=== PATIENT | male | born 1985 | race Caucasian/White ===

== ENCOUNTER 2018-05-11 19:09 | Emergency (ER) | payer BC ==
[2018-05-11 20:20] LABS: #Basophils 0.1 thou/uL (0.0-0.2); #Eosinphils 0.1 thou/uL (0.0-0.7); #Lymphocytes 2.8 thou/uL (1.20-3.40); #Monocytes 0.7 thou/uL (0.11-0.59); #Neutrophils 4.9 thou/uL (1.40-6.50); %Basophils 1.1 % (0.0-1.0); %Eosinophils 1.7 % (0.0-10.0); %Lymphocytes 32.3 % (21.0-51.0); %Monocytes 7.8 % (0.0-10.0); %Neutrophils 57.2 % (42.0-75.0); Hemoglobin 16.6 g/dL (14.0-18.0); Mean Corpuscular HGB CONC 33.9 g/dL (32.0-36.0); Mean Corpuscular Hemoglobin 32.8 pg (27.0-31.0); Mean Corpuscular Volume 96.7 fL (78.0-98.0); Mean Platelet Volume 6.5 fL (7.4-10.4); Platelet Count 318 thou/uL (130-400); RBC Distribution Width 11.5 % (11.5-14.5); Red Blood Cell (RBC) Count 5.07 mill/uL (4.70-6.10); White Blood Cell (WBC) Count 8.5 thou/uL (4.8-10.8)
[2018-05-11 20:27] LABS: Bilirubin Negative (Negative); Blood, Urine Negative (Negative); Clarity CLEAR (Clear); Glucose, Urine (Dipstick) >=1000 mg/dL (Negative); Leukocyte Negative (Negative); Nitrite Negative (Negative); Protein, Urine (Dipstick) Negative (Neg-Trace); Specific Gravity, Urine 1.021 (1.002-1.036)
[2018-05-11 20:41] LABS: ALT (SGPT) 13 U/L (8-55); AST (SGOT) 15 U/L (5-34); Albumin 4.7 g/dL (3.5-5.0); Alkaline Phosphatase 65 U/L (40-150); Anion Gap 11 mmol/L (10-20); BUN (Urea Nitrogen) 9 mg/dL (8.9-20.6); Bilirubin, Total 0.9 mg/dL (0.2-1.2); Calc. Creatinine Clearance 0 mL/min (70-130); Calcium 9.6 mg/dL (7.8-10.44); Carbon Dioxide 27 mmol/L (22-29); Chloride 104 mmol/L (98-107); Estimated GFR-MDRD Greater than 90; Glucose 134 mg/dL (70-105); Protein, Total 7.7 g/dL (6.0-8.3); Sodium 138 mmol/L (136-145)
[2018-05-11] MEDS ORDERED: Mag-Al 1200 mg/1200 mg/30 ML UDCUP ONE (20:44)
[2018-05-11] MEDS ORDERED: Ondansetron ODT 4 MG TAB ONE (20:44)
[2018-05-11] MEDS ORDERED: Lidocaine Viscous Sol 2% 15 ml UD Cup ONE (20:44)
[2018-05-11 20:50] LABS: Alcohol Less than 10 mg/dL (Less than 10); CK (CPK) 104 U/L (30-200)
[2018-05-11 20:56] LABS: Troponin I Less than 0.010 ng/mL (< 0.028)
== END 2018-05-11 21:59 | disposition home or self-care (01) ==
LOC: ERS 19:09
DX: K29.70 Gastritis, unspecified, without bleeding (principal); F17.210 Nicotine dependence, cigarettes, uncomplicated
CPT/HCPCS: 80053; 80307; 81003; 82550; 83690; 84484; 85025; 93005; Q0162

== ENCOUNTER 2019-08-07 18:38 | Emergency (ER) | payer BC, OTHER ==
--- NOTE | 2019-08-07 19:10 | RAD ---
Exam: Chest 2 views HISTORY:Emergency exam Comparison: 10/31/2009 FINDINGS: Lungs: No masses or consolidation. Cardiac silhouette: Normal size Pulmonary vessels: Normal Pleural Spaces: Clear Pneumothorax: None Osseous abnormalities: None of acuity. IMPRESSION: No focal consolidation.
== END 2019-08-07 19:48 | disposition home or self-care (01) ==
LOC: ERS 18:38
DX: M94.0 Chondrocostal junction syndrome [Tietze] (principal); F17.210 Nicotine dependence, cigarettes, uncomplicated
CPT/HCPCS: 71046; 93005

== ENCOUNTER 2019-11-17 17:49 | Inpatient (IN) | payer OTHER, SELFPAY ==
[2019-11-17 18:32] LABS: #Basophils 0.1 thou/uL (0.0-0.2); #Eosinphils 0.1 thou/uL (0.0-0.7); #Lymphocytes 1.8 thou/uL (1.20-3.40); #Monocytes 0.6 thou/uL (0.11-0.59); %Basophils 0.7 % (0.0-1.0); %Eosinophils 0.5 % (0.0-10.0); %Lymphocytes 14.4 % (21.0-51.0); %Monocytes 4.9 % (0.0-10.0); %Neutrophils 79.6 % (42.0-75.0); Mean Corpuscular HGB CONC 33.5 g/dL (32.0-36.0); Mean Corpuscular Volume 95.5 fL (78.0-98.0); Mean Platelet Volume 6.9 fL (7.4-10.4); Platelet Count 326 thou/uL (130-400); RBC Distribution Width 11.9 % (11.5-14.5); Red Blood Cell (RBC) Count 5.01 mill/uL (4.70-6.10); White Blood Cell (WBC) Count 12.6 thou/uL (4.8-10.8)
[2019-11-17 18:38] LABS: Bilirubin Negative (Negative); Blood, Urine Negative (Negative); Clarity Clear (Clear); Glucose, Urine (Dipstick) >=1000 mg/dL (Negative); Leukocyte Negative Leu/uL (Negative); Nitrite Negative (Negative); Protein, Urine (Dipstick) Negative (Neg-Trace); Urobilinogen Normal mg/dL (Less than 2)
--- NOTE | 2019-11-17 18:44 | RAD ---
PORTABLE CHEST: History: Chest pain. FINDINGS: Heart size and mediastinum are within normal limits. Lungs are clear of infiltrates. No significant b carina findings. IMPRESSION: No active intrathoracic disease. POS: [facility]
[2019-11-17 18:58] LABS: ALT (SGPT) 12 U/L (8-55); AST (SGOT) 14 U/L (5-34); Albumin 4.2 g/dL (3.5-5.0); Alkaline Phosphatase 80 U/L (40-110); Anion Gap 13 mmol/L (10-20); BUN (Urea Nitrogen) 9 mg/dL (8.9-20.6); Bilirubin, Total 1.2 mg/dL (0.2-1.2); CK (CPK) 88 U/L (30-200); Calc. Creatinine Clearance 0 mL/min (70-130); Calcium 8.8 mg/dL (7.8-10.44); Carbon Dioxide 26 mmol/L (22-29); Chloride 103 mmol/L (98-107); Estimated GFR-MDRD Greater than 90; Globulin 2.5 g/dL (2.4-3.5); Glucose 239 mg/dL (70-105); Potassium 4.1 mmol/L (3.5-5.1); Protein, Total 6.7 g/dL (6.0-8.3); Sodium 138 mmol/L (136-145)
[2019-11-17 19:17] LABS: Amphetamine Not Detected (NotDetected); Barbiturates Screen Not Detected (NotDetected); Benzodiazepine Screen Not Detected (NotDetected); Cocaine Metabolite Screen Not Detected (NotDetected); Medtox Control Line Valid? VALID (VALID); Medtox Reader # READER 4; Methadone Not Detected (NotDetected); Methamphetamine Not Detected (NotDetected); Opiate Screen Not Detected (NotDetected); Oxycodone Screen Not Detected (NotDetected); Phencyclidine (PCP) Not Detected (NotDetected); THC/Cannabinoid Screen Detected (NotDetected); Tricyclic Screen Not Detected (NotDetected)
[2019-11-17] MEDS ORDERED: Enoxaparin Sodium 60 MG/0.6 ML SYRINGE ONE (21:42)
[2019-11-17 22:02] LABS: Troponin I 0.105 ng/mL (< 0.028)
[2019-11-18] MEDS ORDERED: Nitroglycerin 0.4 MG TAB (25 Tab Bottle) PO PRN (01:03)
[2019-11-18 01:05] LABS: Troponin I 0.107 ng/mL (< 0.028)
[2019-11-18] MEDS ORDERED: Acetaminophen 650 MG Suppository PR PRN (01:08)
[2019-11-18] MEDS ORDERED: Ondansetron PF 4 MG/2 ML Vial IVP PRN (01:08)
[2019-11-18] MEDS ORDERED: Ondansetron ODT 4 MG TAB PO PRN (01:08)
[2019-11-18] MEDS ORDERED: Acetaminophen 325 MG TAB PO PRN (01:08)
[2019-11-18] MEDS ORDERED: Dextrose 5% in Water 1,000 ML IV PRN (01:18)
[2019-11-18] MEDS ORDERED: HumaLOG 300 UNITS/3 ML VIAL SC PRN ×2 (01:18)
[2019-11-18] MEDS ORDERED: Dextrose 50% Abboject 50 ML SYRINGE SLOW IVP PRN (01:18)
[2019-11-18] MEDS: Sodium Chloride 0.9% 1,000 ML IV SCH ×2 (01:37→18:01)
--- NOTE | 2019-11-18 02:17 | HP ---
CHIEF COMPLAINT: Persistent and increasing chest pain. HISTORY OF PRESENT ILLNESS: Mr. Ding is a 34-year-old gentleman with a known history of diabetes mellitus, controlled with diet, who presents with ongoing chest pain for the last month. The patient states the pain occurs almost daily, initially lasting a couple of minutes and brought on when he exerted himself and relieved with rest. The pain has been progressively worse in severity and lasting a few minutes longer than usual over the last week. The patient states the pain is in the center of his chest radiating up into his neck to his jaw and reports pain in the bilateral forearms. He states the pain in his forearm comes on at the same time as the chest pain and just like the chest pain, it resolves once he is resting. He does not know if he was taking any medications for this at home. Denies any associated shortness of breath, cough, or hemoptysis. No diaphoresis. No nausea or vomiting. No abdominal pain. The patient concerned due to a strong family history of coronary artery disease and diabetes mellitus in both parents as well as in maternal uncles. In the emergency department, the patient underwent laboratory studies notable for a white count of 12.6, hemoglobin 16, platelets 326, neutrophils 79.6. Sodium is , potassium 4.1, BUN 9, creatinine 0.81, GFR 90, glucose 239, calcium 8.8. LFTs unremarkable. Initial troponin was 0.092 and second troponin 0.105. Urinalysis notable for greater than 1000 glucose, 740 ketones. Urine drug screen has come back positive for cannabinoids. He has had a chest x-ray done showing no acute intrathoracic disease. In the ED, he has been treated with 324 mg of aspirin and given 1 L of normal saline. He was also started on Lovenox 1 mg/kg. An EKG done in the ER showed normal sinus rhythm with a heart rate of 62. He did have some changes concerning for LVH. PAST MEDICAL HISTORY: 1. Diabetes, diet controlled. 2. Heavy smoker. PAST SURGICAL HISTORY: None. SOCIAL HISTORY: The patient reports smoking marijuana occasionally. Denies any heavy alcohol consumption. Reports smoking 1-1/2 to 2-1/2 packs of cigarettes per day for the last 20 years. ALLERGIES: NO KNOWN DRUG ALLERGIES. CURRENT MEDICATIONS: None. PHYSICAL EXAMINATION: GENERAL: The patient appears thin, well developed, and in no acute distress. VITAL SIGNS: Temperature 98, pulse 68, blood pressure 154/82, respirations 18, and O2 saturation 99% on room air. HEENT: Normocephalic and atraumatic. Pupils are equal, round, and reactive to light. Sclerae without icterus. Oropharynx is clear. NECK: Supple. LUNGS: Clear to auscultation bilaterally without wheezes, rales, or rhonchi. CARDIAC: Regular rate and rhythm. No chest wall tenderness. NEUROLOGIC: Alert and oriented x3. SKIN: Warm and dry. EXTREMITIES: No lower leg swelling or edema. NEUROLOGIC: Alert and oriented x3. No neuro deficits on exam. INVESTIGATIONS: As mentioned above in HPI. IMPRESSION AND PLAN: Mr. Ding is a 34-year-old gentleman with persistent chest pain for the last month, becoming more frequent and lasting longer and more prolonged with exertion, who is being admitted for management of the followin. Acute coronary syndrome rule out. We will continue to trend troponins. The patient the ED. We will consult Cardiology given concern for unstable angina and strong family history. Troponin slightly bumped from initial troponin. Awaiting third troponin and we will plan to have another troponin. The patient has never had an echocardiogram done in the past. We will add a BNP, magnesium, TSH and morning lipid panel. We will also obtain a baseline echo. Continue cardiac monitoring. 2. Diabetes. The patient is not on any medications. We will obtain hemoglobin A1c as it appears his glucose is not being well managed with dietary changes. We will initiate insulin sliding scale. Monitor blood glucose. 3. Heavy tobacco use. Smoking cessation. We will hold on nicotine patch at this present time. 4. Gastrointestinal prophylaxis with famotidine. 5. Deep venous thrombosis prophylaxis. The patient is ambulatory. Lovenox started in the ED. We will continue. 6. Code status, full. Surrogate decision maker is his mother, Kadi Ding. The patient's case was discussed with the attending, who agrees with plan of care as described above. Job ID: [id number]
[2019-11-18 04:30] LABS: #Basophils 0.1 thou/uL (0.0-0.2); #Eosinphils 0.3 thou/uL (0.0-0.7); #Lymphocytes 4.3 thou/uL (1.20-3.40); #Monocytes 0.6 thou/uL (0.11-0.59); #Neutrophils 3.7 thou/uL (1.40-6.50); %Basophils 0.8 % (0.0-1.0); %Eosinophils 2.9 % (0.0-10.0); %Lymphocytes 48.2 % (21.0-51.0); %Monocytes 6.4 % (0.0-10.0); %Neutrophils 41.7 % (42.0-75.0); Hemoglobin 15.5 g/dL (14.0-18.0); Mean Corpuscular HGB CONC 33.4 g/dL (32.0-36.0); Mean Corpuscular Hemoglobin 32.1 pg (27.0-31.0); Mean Corpuscular Volume 95.9 fL (78.0-98.0); Mean Platelet Volume 6.9 fL (7.4-10.4); Platelet Count 301 thou/uL (130-400); RBC Distribution Width 11.9 % (11.5-14.5); Red Blood Cell (RBC) Count 4.83 mill/uL (4.70-6.10)
[2019-11-18 04:53] LABS: Anion Gap 9 mmol/L (10-20); BUN (Urea Nitrogen) 11 mg/dL (8.9-20.6); Calc. Creatinine Clearance 107 mL/min (70-130); Calcium 8.5 mg/dL (7.8-10.44); Carbon Dioxide 24 mmol/L (22-29); Cardiac Risk 3.7 (Less than 4.5); Chloride 106 mmol/L (98-107); Cholesterol 172 mg/dl (< 200 Desired); Estimated GFR-MDRD Greater than 90; Glucose 190 mg/dL (70-105); HDL Cholesterol 47 mg/dL (>60 Neg Risk); LDL Cholesterol, Calculated 98 mg/dL; Potassium 4.1 mmol/L (3.5-5.1); Sodium 135 mmol/L (136-145); Triglycerides 134 mg/dL (Less than 150)
[2019-11-18] MEDS ORDERED: FLU VACC QS2019-20(6MOS UP)/PF 60 MCG/0.5 ML SYRINGE IM ONE (09:00)
[2019-11-18] MEDS ORDERED: Enoxaparin Sodium 60 MG/0.6 ML SYRINGE SC SCH (09:00)
[2019-11-18] MEDS ORDERED: Aspirin 81 mg Enteric Coated Tablet PO SCH (09:00)
[2019-11-18] MEDS ORDERED: Aspirin Chewable 81 MG TAB PO SCH (09:00)
[2019-11-18] MEDS ORDERED: Iopamidol 370 76% 100 ML VIAL ONE (09:31)
[2019-11-18] MEDS ORDERED: Heparin (Artline) 1,000 ML ONE (10:49)
[2019-11-18] MEDS ORDERED: Lidocaine 1% (PF) 30 ML VIAL ONE ×2 (10:49→11:12)
[2019-11-18] MEDS ORDERED: Verapamil 5 MG/2 ML VIAL ONE (11:14)
[2019-11-18] MEDS ORDERED: Nitroglycerin 100MG/250ML BOT 250 ML ONE (11:14)
[2019-11-18] MEDS ORDERED: Heparin 10,000 UNITS/1 ML VIAL ONE (11:14)
--- NOTE | 2019-11-18 11:58 | CON ---
DATE OF CONSULTATION: HISTORY OF PRESENT ILLNESS: A 34-year-old male with past medical history of diabetes and significant tobacco abuse, presented to the emergency department yesterday for chest pain. The patient reports multiple months of ongoing chest pain that occurs nearly daily. It is brought on by exertion and relieved by rest. The patient notes that pain was increasing in duration. Yesterday, he begin to have chest pain whenever he woke up and this pain lasted from 7:00 a.m. until later in the afternoon when he was given nitroglycerin in the emergency department. The nitroglycerin relieved his pain. Pain is described as burning, radiates up his neck. He also notes bilateral forearm pain. He has no primary care physician. History of diabetes diagnosed as a teenager and has not been on any medications. He continues to smoke. PAST MEDICAL HISTORY: Uncontrolled diabetes, not on medications. PAST SURGICAL HISTORY: None. SOCIAL HISTORY: Positive for marijuana on drug screen. No alcohol use. Current smoker, smoking 1-1/2 to 2-1/2 packs per day for the past 18 years. FAMILY HISTORY: Positive for coronary artery disease in multiple family members. ALLERGIES: NONE. REVIEW OF SYSTEMS: Complete review of systems reviewed and negative apart from dizziness. PHYSICAL EXAMINATION: VITAL SIGNS: Temperature 97.6, pulse 74, respirations 14, O2 saturation 98% on room air, blood pressure 115/75. HEENT: Normocephalic, atraumatic. NECK: Carotids are 2+. I could not hear any bruits. CHEST: Clear to auscultation. No rales, rhonchi, or wheezing. CARDIOVASCULAR: Regular rate and rhythm with normal S1 and S2. No significant murmurs. ABDOMEN: Soft, nontender. Bowel sounds present. EXTREMITIES: Normal muscle strength and tone. No cyanosis or clubbing. Pulses are 2+ and equal. LABORATORY DATA: Troponin max 0.107 and downtrended to most recent of 0.094. Hemoglobin A1c 10.0. IMPRESSION: Unstable angina. Consider inpatient significant risk factors including uncontrolled diabetes and tobacco abuse. Discussed options for evaluation with the patient considering abnormal troponin. We will proceed with cardiac catheterization. Risks, benefits, and alternatives discussed and all questions answered. The patient to remain n.p.o. and we will plan for catheterization today. Job ID: [id number]
[2019-11-18] MEDS ORDERED: Nitroglycerin 0.4 MG TAB (25 Tab Bottle) SL PRN (12:19)
[2019-11-18] MEDS ORDERED: Sodium Chloride 0.9% 200 ML IV PRN (12:19)
[2019-11-18] MEDS ORDERED: Acetaminophen/Codeine 30-300mg Tablet PO PRN ×2 (12:19)
--- NOTE | 2019-11-18 13:40 | PDOC.HOSPP ---
- Subjective Encounter Date: 11/18/19 Encounter Time: 13:38 Subjective: post cath, no pain, cabg planned - Objective Vital Signs & Weight: Vital Signs (12 hours) Temp Pulse Resp BP Pulse Ox 11/18/19 07:21 97.6 F 74 14 115/75 98 11/18/19 04:54 98.1 F 70 16 116/72 100 Weight Weight 110 lb 12.8 oz Result Diagrams: 11/18/19 04:19 11/18/19 04:19 Additional Labs: Accuchecks 11/18/19 11/18/19 13:23 06:23 POC Glucose 137 H 165 H Hospitalist ROS - Medication Medications: Active Medications Generic Name Dose Route Start Last Admin Trade Name Freq PRN Reason Stop Dose Admin Acetaminophen 650 mg 11/18/19 01:08 11/18/19 09:54 Tylenol PO 650 mg Q4H PRN Administration Headache/Fever/Mild Pain (1-3) Aspirin 81 mg 11/18/19 09:00 11/18/19 08:51 Ecotrin PO 81 mg DAILY AROLDO Administration Sodium Chloride 1,000 mls @ 65 mls/hr 11/18/19 01:15 11/18/19 01:37 Normal Saline 0.9% IV 1,000 mls .[id number] AROLDO Administration Sodium Chloride 10 ml 11/18/19 09:00 11/18/19 08:50 Flush - Normal Saline IVF Not Given Q12HR AROLDO - Exam General Appearance: awake alert Neck: no JVD Heart: RRR, no murmur Respiratory: CTAB Gastrointestinal: soft, normal bowel sounds Extremities: no edema Hosp A/P (1) Non-ST elevation [place] (NSTEMI) Code(s): I21.4 - NON-ST ELEVATION (NSTEMI) MYOCARDIAL INFARCTION Status: Acute (2) CAD (coronary artery disease) Code(s): I25.10 - ATHSCL HEART DISEASE OF [place] CORONARY ARTERY W/O ANG PCTRS Status: Acute Qualifiers: Coronary Disease-Associated Artery/Lesion type: [place] artery [place] vs. transplanted heart: [place] heart Associated angina: with unstable angina Qualified Code(s): I25.110 - Atherosclerotic heart disease of [place] coronary artery with unstable angina pectoris (3) DM (diabetes mellitus), type 2, uncontrolled Code(s): E11.65 - TYPE 2 DIABETES MELLITUS WITH HYPERGLYCEMIA Status: Chronic Qualifiers: Glycemic state: with hyperglycemia Qualified Code(s): E11.65 - Type 2 diabetes mellitus with hyperglycemia (4) Tobacco abuse Code(s): Z72.0 - TOBACCO USE Status: Chronic - Plan CABG 11/19/19 cont ASA etc
--- NOTE | 2019-11-18 15:27 | CON ---
DATE OF CONSULTATION: ADDENDUM: Please refer to the notes dictated by the Family Practice Resident, Lis Mckee. Mr. Ding is a very pleasant 34-year-old gentleman with a history of diabetes and tobacco abuse. He has not been taking his medications. He has been diagnosed with diabetes for approximately 18 years or longer, but he has not been taking his medications. He had been on medications in the past, but stopped taking, stating he cannot afford the medications. He has also not been taking his other medications. He does not have any significant history of hypertension. He does smoke marijuana; however, but his risk factors for coronary artery disease would include diabetes as well as most likely hypercholesterolemia and tobacco abuse. He did smoke heavily in the past, continues to smoke up to one and half to two packs a day, smoked for the last 18 years. His family history was positive for coronary artery disease. His allergies were none. His medications, he is not taking medications that have been prescribed. He has no primary care physician. He does not follow up with the doctors. He presented to the emergency room complaining of chest pain that started while he was at work. Enzymes were slightly abnormal and would still be considered to be indeterminate for myocardial infarction; however, this appears to be a non-ST segment elevation myocardial infarction. He did have EKG changes with T-wave inversions in the anterior leads, but did not have any Q-waves. He did have also T-wave inversions in III and aVF. He will be advised to goes to the cardiac cardiac cath technician for further evaluation due to the strong family history and also continued EKG changes as well as abnormal enzymes and history of tobacco abuse and diabetes. I have seen the patient, evaluated the patient, and agree with the assessment and plan, it was dictated by the resident. Job ID: [id number]
[2019-11-18] MEDS ORDERED: Docusate 100 MG CAP PO SCH (21:00)
[2019-11-19] MEDS ORDERED: Albumin 5% 500 ML ONE (06:08)
[2019-11-19] MEDS ORDERED: Heparin 10,000 UNITS/1 ML VIAL 30,000 UNITS in Sodium Chloride 0.9% 1,000 ML FS SCH (06:30)
[2019-11-19] MEDS ORDERED: Midazolam HCl 2 mg/2 ml Vial ONE (06:31)
[2019-11-19] MEDS ORDERED: Fentanyl 100 MCG/2 ML VIAL ONE (06:31)
[2019-11-19] MEDS ORDERED: Midazolam HCl 5 mg/5 ml Vial ONE (06:31)
[2019-11-19] MEDS ORDERED: Dexmedetomidine 200 MCG/2 ML VIAL ONE (06:32)
[2019-11-19] MEDS ORDERED: Vecuronium 10 MG VIAL ONE ×3 (06:32→09:26)
[2019-11-19] MEDS ORDERED: CEFAZOLIN 1 GM in Premix Bag 1 BAG IVPB SCH (07:15)
--- NOTE | 2019-11-19 07:28 | CON ---
DATE OF CONSULTATION: 11/18/2019 REQUESTING PHYSICIAN: Dr. Dawn. CHIEF COMPLAINT: Chest pain. HISTORY OF PRESENT ILLNESS: The patient is a 34-year-old poorly-controlled diabetic smoker with a positive family history for premature coronary disease. He had his fist episode of chest pain about a year ago. He says that around December of 2018, he had an episode that awoke him in the morning as associated with severe pain and pounding of his heart. He said it felt like his heart was going to explode. He had ache in both forearms, but it spontaneously resolved. 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 It was not as severe as his first episode, but was associated with nausea which is not typical for him and even more significant, it lasted almost all day. He finally presented to the emergency room late in the day and had a positive troponin at that time. His EKG showed precordial ST depression and T-wave inversions, but no ST elevations. Cardiac catheterization today shows severe 3-vessel coronary artery disease with low normal LVEF. PAST MEDICAL HISTORY: Significant for diabetes, it was diagnosed at age 16. He says that he has never been on medications and describes himself as being diet controlled. He has smoked for about 20 years, typically around a pack or a pack and half a day, but at times as much as 2-1/2 packs a day. He occasionally smokes marijuana. FAMILY HISTORY: Quite striking for coronary artery disease. His mother described as his family being "riddled" with heart disease. Her father had coronary artery bypass surgery few years ago, but only recently having lived up into his 90s, but her mother had diabetes and coronary artery disease. She has brothers who have had coronary artery disease and she has had nephews, the patient's cousins who have had coronary artery disease in their 20s and 30s. He says that her father's first heart attack was in his late teens. REVIEW OF SYSTEMS: He is beginning to have some difficulty with visual acuity, but he has had no transient eye, speech, facial, or extremity symptoms suggestive of TIAs. He has never had a known stroke. He does not have any crampy pain in his calves, hips, or buttocks consistent with claudication. He typically does not have any problems with shortness of breath or orthopnea. He has not had any PND. He has not had any edema. PHYSICAL EXAMINATION: GENERAL: He is 5 feet 3 inches and weighs 110 and 3/4 pounds. VITAL SIGNS: In the emergency room at presentation, as his pain was almost completely resolved, his heart rate was 74, blood pressure of 120/70. His most recent measurements were heart rate of 74, blood pressure of 115/75, his temperature is 97.6, room air O2 sats have been 98% to 100%. HEENT: He has no xanthelasma. NECK: No JVD. No carotid bruits. CHEST: Clear to auscultation. He has regular rate and rhythm. ABDOMEN: Soft and nontender without masses or bruits. EXTREMITIES: He has a pressure device on his right wrist at his cath site, his left radial pulse is full and easy to feel. His Mahesh's testing showed capillary refill on his hands with ulnar flow only, but it seemed a little bit more sluggish than I anticipated, which prompted a Doppler exam. Doppler exam with his radial artery compressed, he had a very strong radial pulse and digital pulses in each of the 5 distal phalanges could be identified with the radial artery compressed. He has palpable femoral pulses with no associated bruits. He has palpable dorsalis pedis and posterior tibial pulses. No clubbing, cyanosis, or edema. No obvious varicosities in his legs. NEUROLOGICAL: Grossly nonfocal. LABORATORY DATA: His white count was 12.6, hemoglobin 16.0, hematocrit 47.8, platelets 326,000. Hemoglobin A1c was 10.0. Electrolytes were normal. Glucose 239, BUN 9, creatinine 0.81, calcium 8.8, protein 6.7, albumin 4.2, bilirubin 1.2, alkaline phosphatase 80, AST 14, ALT 12. Fasting lipid showed a triglyceride 134, cholesterol 172, LDL 98, and HDL 47. His TSH was 0.6646. His initial troponin about 6:30 yesterday evening was 0.092, roughly 3 hours later was 0.105; after midnight, it was 0.107; at about 4 o'clock this morning, it had come back down to 0.094. His BNP at roughly midnight was 58.4. His chest x-ray was clear. His EKG showed inverted T-waves in V2 and V3 and an essentially biphasic T-wave in V4. He had downsloping Ts in lead III, V1, 2 and [address]ly depressed [address]-segment in V4. His cardiac catheterization shows a right-dominant system. His left main is essentially normal. He has about an 80% or 90% mid LAD lesion just proximal to a stenotic, but very small bifurcated first diagonal. The LAD wraps around the apex and appears to be a good-sized vessel. He has about a 99% discrete lesion in reasonably good sized ramus and a long 70% or 80% lesion in the circumflex proper just beyond an atrial branch. There is competitive flow from the right system that appears to probably represent the PDA. He has proximal and distal 80% or 90% lesions in the right coronary proper. LVEF is around 40% or 50% with anterior hypokinesis. LV pressure is 116/9 with an EDP of 14. Aortic pressure on pullback was 115/68 with a mean of 90. IMPRESSION AND RECOMMENDATIONS: Three-vessel coronary disease following a [id number] anterior myocardial infarction in a poorly controlled 34-year-old diabetic smoker with a positive family history of premature coronary artery disease. He probably has adequate flow to his hand to allow for a safe radial artery harvest. Whether his radial artery will be big enough to use given his small stature is a different issue, but I think it is worth exploring. I am reluctant to do bilateral mammaries in this poorly-controlled diabetic and will prioritize arterial conduits and use venous conduit for the remainder. Job ID: [id number]
[2019-11-19] MEDS ORDERED: Insulin Regular 300 UNITS/3 ML VIAL ONE (08:10)
[2019-11-19] MEDS ORDERED: Neomycin-Polymyxin 1 ML AMP ONE (09:10)
[2019-11-19] MEDS ORDERED: PHENYLEPHRINE-NS 100 MCG/ML 10 ML SYRINGE ONE ×2 (09:26→10:28)
[2019-11-19] MEDS ORDERED: ePHEDrine/0.9% NaCl/PF SYRINGE 50 mg/10 ml ONE (09:26)
[2019-11-19] MEDS ORDERED: Lidocaine 2% PF 5 ML VIAL ONE (09:26)
[2019-11-19] MEDS ORDERED: Aminocaproic Acid 5 GM/20 ML VIAL ONE (09:26)
[2019-11-19] MEDS ORDERED: Dextrose 50% Abboject 50 ML SYRINGE ONE (09:26)
[2019-11-19] MEDS ORDERED: Ondansetron PF 4 MG/2 ML Vial ONE (09:26)
[2019-11-19] MEDS ORDERED: Protamine Sulfate 250 MG/25 ML VIAL ONE (09:26)
[2019-11-19] MEDS ORDERED: Heparin 5,000 UNITS/ML VIAL ONE (09:26)
[2019-11-19] MEDS ORDERED: Papaverine 60 MG/2 ML VIAL ONE (09:26)
[2019-11-19] MEDS ORDERED: Ketorolac Tromethamine 30 MG/ML VIAL ONE (09:26)
[2019-11-19] MEDS ORDERED: Cardioplegic Soln 1,000 ML BAG ONE (09:26)
[2019-11-19] MEDS ORDERED: Lidocaine 1% PF 5 ML VIAL ONE ×2 (09:26)
[2019-11-19] MEDS ORDERED: Magnesium Sulfate 1 GM/2 ML VIAL ONE (09:26)
[2019-11-19] MEDS ORDERED: Glycopyrrolate 0.2 MG/ML 5 ML SYRINGE ONE (09:26)
[2019-11-19] MEDS ORDERED: Potassium Chloride 60 MEQ/30 ML VIAL ONE (09:26)
[2019-11-19] MEDS ORDERED: Sodium Bicarb 50 MEQ/50 ML Abboject 8.4% SYRINGE ONE (09:26)
[2019-11-19] MEDS ORDERED: Dexamethasone 20 MG/5 ML VIAL ONE (09:26)
[2019-11-19] MEDS ORDERED: Esmolol 100 MG/10 ML VIAL ONE (09:26)
[2019-11-19] MEDS ORDERED: Heparin 30,000 units/30 ml VIAL ONE (09:26)
[2019-11-19] MEDS ORDERED: Thrombin 5000 UNITS/5 ML VIAL ONE (09:26)
[2019-11-19] MEDS ORDERED: Calcium Chloride 1 GM/10 ML Abboject SYRINGE ONE (09:26)
[2019-11-19] MEDS ORDERED: Norepinephrine 8 MG/0.9% NS 250 ML IVPB PRN (12:32)
[2019-11-19] MEDS ORDERED: Acetaminophen 325 MG TAB PO PRN (12:32)
[2019-11-19] MEDS ORDERED: Promethazine HCl 25 MG/ML VIAL IM PRN (12:32)
[2019-11-19] MEDS ORDERED: Guaifenesin DM 100-10/5 ML UDCUP PO PRN (12:32)
[2019-11-19] MEDS ORDERED: Ondansetron PF 4 MG/2 ML Vial IVP PRN (12:32)
[2019-11-19] MEDS ORDERED: Post-Op Insulin Drip Protocol IVPB ONE (12:32)
[2019-11-19] MEDS ORDERED: niCARdipine 25 MG in Sodium Chloride 0.9% 250 ML 250 ML IVPB PRN (12:32)
[2019-11-19] MEDS ORDERED: Fentanyl 100 MCG/2 ML VIAL SLOW IVP PRN (12:32)
[2019-11-19] MEDS ORDERED: Hetastarch 6% 500 ML 500 ML IVPB PRN (12:32)
[2019-11-19] MEDS ORDERED: HYDROcodone/Acetaminophen 5/325 mg Tablet PO PRN (12:32)
[2019-11-19] MEDS ORDERED: Nitroglycerin 50 MG/250 ML BOT 250 ML IVPB PRN (12:32)
[2019-11-19] MEDS ORDERED: hydrALAZINE 20 MG/ML VIAL SLOW IVP PRN (12:32)
[2019-11-19] MEDS ORDERED: Mag-Al 1200 mg/1200 mg/30 ML UDCUP PO PRN (12:32)
[2019-11-19] MEDS ORDERED: Bisacodyl 5 MG TAB PO PRN (12:32)
[2019-11-19] MEDS ORDERED: Bisacodyl 10 MG SUPP PR PRN (12:32)
[2019-11-19] MEDS ORDERED: Morphine 2 MG/ML SYRINGE SLOW IVP PRN (12:32)
[2019-11-19] MEDS ORDERED: Potassium Chloride 20 MEQ/100 ML PREMIX BAG IVPB PRN (12:32)
[2019-11-19] MEDS ORDERED: Dextrose 5% in Water 1,000 ML IV PRN (12:51)
[2019-11-19] MEDS ORDERED: Dextrose 50% Abboject 50 ML SYRINGE SLOW IVP PRN (12:51)
[2019-11-19] MEDS ORDERED: Insulin Regular 300 UNITS/3 ML VIAL SC PRN (12:51)
[2019-11-19] MEDS ORDERED: HUMULIN R 100 UNITS in Sodium Chloride 0.9% 100 ML IVPB SCH (12:51)
[2019-11-19] MEDS ORDERED: Aspirin Chewable 81 MG TAB PO SCH (13:00)
[2019-11-19] MEDS ORDERED: Famotidine/PF 20 mg/2ml Vial SLOW IVP SCH (13:00)
--- NOTE | 2019-11-19 13:31 | RAD ---
EXAM: Single view of the chest HISTORY: Status post open heart surgery COMPARISON: 11/17/2019 FINDINGS: Single view of the chest shows a normal sized cardiomediastinal silhouette. The patient is status post sternotomy. There is a left subclavian central venous catheter with its tip in superior vena cava. Mediastinal drains are seen. No pneumothorax is present. There is no evidence of consolidation, mass, or pleural effusion. The bones are unremarkable. IMPRESSION: Appropriate position of lines and tubes status post sternotomy.
[2019-11-19 13:32] LABS: #Eosinphils 0.1 thou/uL (0.0-0.7); #Lymphocytes 0.9 thou/uL (1.20-3.40); #Monocytes 0.8 thou/uL (0.11-0.59); #Neutrophils 17.9 thou/uL (1.40-6.50); %Basophils 0.1 % (0.0-1.0); %Eosinophils 0.4 % (0.0-10.0); %Lymphocytes 4.4 % (21.0-51.0); %Monocytes 3.8 % (0.0-10.0); %Neutrophils 91.3 % (42.0-75.0); Hemoglobin 13.8 g/dL (14.0-18.0); Mean Corpuscular HGB CONC 33.2 g/dL (32.0-36.0); Mean Corpuscular Hemoglobin 32.1 pg (27.0-31.0); Mean Corpuscular Volume 96.5 fL (78.0-98.0); Mean Platelet Volume 7.2 fL (7.4-10.4); Platelet Count 163 thou/uL (130-400); RBC Distribution Width 11.7 % (11.5-14.5); Red Blood Cell (RBC) Count 4.29 mill/uL (4.70-6.10); White Blood Cell (WBC) Count 19.6 thou/uL (4.8-10.8)
[2019-11-19 13:35] LABS: PTT 29.5 SEC (22.9-36.1)
[2019-11-19 13:36] LABS: INR-International Normal Ratio 1.4; Prothrombin Time 16.8 SEC (12.0-14.7)
[2019-11-19] MEDS: Fentanyl 100 MCG/2 ML VIAL SLOW IVP PRN ×2 (13:42→15:32)
[2019-11-19] MEDS: Ketorolac Tromethamine 30 MG/ML VIAL IVP SCH ×3 (13:49→23:59)
[2019-11-19 13:50] LABS: Anion Gap 6 mmol/L (10-20); BUN (Urea Nitrogen) 7 mg/dL (8.9-20.6); Calc. Creatinine Clearance 127 mL/min (70-130); Calcium 7.5 mg/dL (7.8-10.44); Carbon Dioxide 26 mmol/L (22-29); Chloride 112 mmol/L (98-107); Estimated GFR-MDRD Greater than 90; Glucose 162 mg/dL (70-105); Potassium 3.7 mmol/L (3.5-5.1); Sodium 140 mmol/L (136-145)
[2019-11-19] MEDS: Sodium Chloride 0.9% 1,000 ML IV SCH ×2 (13:50)
--- NOTE | 2019-11-19 15:36 | PDOC.HOSPP ---
- Subjective Encounter Date: 11/19/19 Encounter Time: 15:34 Subjective: awake, extubated, shoulders hurt - Objective Vital Signs & Weight: Vital Signs (12 hours) Temp Pulse Resp BP Pulse Ox 11/19/19 15:29 99 11/19/19 15:00 100 11/19/19 14:00 97.0 F L 11/19/19 06:00 96 11/19/19 05:04 98.8 F 82 16 131/74 96 Weight Weight 114 lb 3.2 oz Most Recent Monitor Data Heart Rate from ECG 88 NIBP 117/59 NIBP BP-Mean 78 Respiration from ECG 19 SpO2 100 I&O: 11/18/19 11/19/19 11/20/19 06:59 06:59 06:59 Intake Total 4687 250 Output Total 2850 125 Balance 1837 125 Result Diagrams: 11/19/19 13:10 11/19/19 13:10 Additional Labs: Accuchecks 11/19/19 11/19/19 11/19/19 12:45 12:10 11:52 POC Glucose 172 H 220 H 194 H 11/19/19 11/19/19 11/19/19 11:31 11:24 11:05 POC Glucose 229 H 194 H 98 11/19/19 11/19/19 11/19/19 10:48 10:35 10:17 POC Glucose 139 H 136 H 141 H 11/19/19 11/19/19 11/19/19 10:09 08:00 05:34 POC Glucose 55 L* 192 H 205 H 11/18/19 11/18/19 20:24 16:51 POC Glucose 106 288 H Hospitalist ROS - Medication Medications: Active Medications Generic Name Dose Route Start Last Admin Trade Name Freq PRN Reason Stop Dose Admin Albumin Human 12.5 gm 11/19/19 12:32 11/19/19 13:45 Albumin 5% IVPB 11/20/19 12:33 12.5 gm Q6H PRN Administration To Maintain SBP> 90 mmHG Fentanyl 50 mcg 11/19/19 12:32 11/19/19 15:32 Sublimaze SLOW IVP 11/21/19 07:18 50 mcg Q2H PRN Administration Severe Pain (7-10) Sodium Chloride 1,000 mls @ 75 mls/hr 11/19/19 12:32 11/19/19 13:50 Normal Saline 0.9% IV 1,000 mls .[id number] AROLDO Administration Ketorolac Tromethamine 30 mg 11/19/19 12:32 11/19/19 13:49 Toradol IVP 11/20/19 06:33 Not Given Q6H AROLDO Potassium Chloride 20 meq 11/19/19 12:32 11/19/19 14:25 Kcl IVPB 20 meq PRN PRN Administration K level </= 4.0 - Exam General Appearance: awake alert Neck: no JVD, no carotid bruit Heart: RRR, no murmur Respiratory: rhonchi Respiratory - other findings: good insp effort. bilat chest tubes Gastrointestinal: soft, normal bowel sounds Extremities: no edema Hosp A/P (1) Non-ST elevation [place] (NSTEMI) Code(s): I21.4 - NON-ST ELEVATION (NSTEMI) MYOCARDIAL INFARCTION Status: Acute (2) CAD (coronary artery disease) Code(s): I25.10 - ATHSCL HEART DISEASE OF [place] CORONARY ARTERY W/O ANG PCTRS Status: Acute Qualifiers: Coronary Disease-Associated Artery/Lesion type: [place] artery [place] vs. transplanted heart: [place] heart Associated angina: with unstable angina Qualified Code(s): I25.110 - Atherosclerotic heart disease of [place] coronary artery with unstable angina pectoris (3) DM (diabetes mellitus), type 2, uncontrolled Code(s): E11.65 - TYPE 2 DIABETES MELLITUS WITH HYPERGLYCEMIA Status: Chronic Qualifiers: Glycemic state: with hyperglycemia Qualified Code(s): E11.65 - Type 2 diabetes mellitus with hyperglycemia (4) Tobacco abuse Code(s): Z72.0 - TOBACCO USE Status: Chronic - Plan post CABG, doing well bilat chest tubes cont [facility] protocol
--- NOTE | 2019-11-19 17:49 | OP ---
DATE OF PROCEDURE: 11/19/2019 PROCEDURES PERFORMED: Coronary artery bypass grafting x4 with left internal mammary artery to the distal left anterior descending, reverse greater saphenous vein graft from the aorta to the PDA, and sequential left radial artery from the aorta (curry of the PDA graft proximal anastomosis) to the ramus intermedius to the obtuse marginal. PREOPERATIVE DIAGNOSIS: Coronary artery disease status post [id number] myocardial infarction. POSTOPERATIVE DIAGNOSIS: Coronary artery disease status post [id number] myocardial infarction. GRANITE INSTALLER: Rudy Mendieta MD ANESTHESIA: General endotracheal anesthesia. INDICATIONS: The patient is a 34-year-old type 1 diabetic, smoker, with a strongly positive family history of premature coronary artery disease. He has had progression of angina for about a year and presented with a prolonged episode of chest pain and ruled in for myocardial infarction by enzymes. Cardiac catheterization demonstrated severe 3-vessel coronary artery disease. FINDINGS: Slightly small, but good quality JULIÁN and radial artery. Good quality saphenous vein. The LAD was 1.5 to 2 mm. The first diagonal was about 1 mm and not grafted. The ramus was a 2 mm intramyocardial vessel. The OM was about 2 mm. The PDA was 1.5 to 2 mm. The pericardium was closed. Pump time was 98 minutes and cross-clamp time was 50 minutes. NARRATIVE REPORT: After informed consent was obtained, the patient was taken to the operating room and placed in supine position on the operating table. After the induction of general anesthesia, a vascular exam of the left (nondominant) hand was undertaken with a pulse oximetry probe on the patient's left index finger. The left radial artery was compressed. There was no change in the pulse ox waveform. With compression of the ulnar artery, the waveform disappeared, and with release of it, the waveform normalized. His greater saphenous vein in his left thigh was ultrasonographically mapped and marked. He was placed in Trendelenburg and his left upper chest was prepped and draped in sterile fashion. A triple lumen central line kit was used to place a left subclavian central line by the Seldinger technique. All 3 ports easily aspirated and flushed. The patient's torso, groins, left upper extremity, and bilateral lower extremities were prepped and draped in sterile fashion. An incision was made sharply over the palpable radial pulse of the left wrist. It was exposed there. It was somewhat spastic, exaggerating its small size, that was enlarged in keeping with the patient's slight stature. It was then exposed with sequential extensions of the skin incision towards the antecubital fossa. Tenotomy scissors were used to dissect the vessel, essentially skeletonizing it, although some of the venae communicantes were left adherent. The proximal end of the radial artery was doubly ligated just at its origin from the brachial artery and there was brisk backbleeding from the vessel. It was doubly ligated at the wrist and distally cannulated with a small bore olive-tipped needle to allow for distention of the vessel with papaverine solution. The radial artery was assessed for adequacy of control of side branches and bathed in papaverine and then placed in a container with irrigant. The forearm wound was irrigated and inspected for hemostasis and then closed in layers of subcutaneous and subcuticular Vicryl. Dermabond was applied and the wound was dressed and wrapped and the arm tucked. Insurance Inspector exposed the greater saphenous vein just above the left knee and then endoscopically harvested it from the knee to the groin. The vein was prepared for use as a graft and the port site was closed in layers of subcutaneous and subcuticular Vicryl. Meanwhile, a median sternotomy was performed. The left internal mammary artery was harvested as a skeletonized in-situ graft from the level of the xiphoid to just beyond the level of the subclavian vein through an extrapleural exposure. A small dependent rent in the pleura near the apex was repaired with Prolene suture. The patient was heparinized. The mammary was ligated and divided distally. There was excellent flow through the mammary. Papaverine solution was instilled intraluminally and the mammary distended nicely with that maneuver. The mammary bed was inspected for hemostasis. The JULIÁN retractor was placed with a Petersen retractor. The pericardium was opened and marsupialized. The aorta was palpated. It was soft and was fairly small caliber. A double concentric pursestring of 2-0 Ethibond was placed in the ascending aorta within the pericardial reflection and a single pursestring was placed in the right atrial appendage. Aortic and venous cannulas were inserted and secured by their pursestrings. Cardiopulmonary bypass was instituted and the patient was systemically cooled. The heart was examined and the vessels to be bypassed were identified. A longitudinal slit was made in the pericardium anterior to the left phrenic nerve, through which the mammary could be passed. The plane between the aorta and the pulmonary artery was developed. An aortic cross-clamp was applied and cardioplegia was administered through an aortic root needle. When arrest have been achieved, attention was turned to the PDA. It was exposed and opened in its midportion, where it appeared on the epicardial surface inferiorly. The greater saphenous vein was reversed and anastomosed there end-to-side with running 6-0 Prolene suture and the anastomosis was tested by flushing cold cardioplegia down the graft. Attention was then turned to the anterolateral aspect of the heart. The circumflex plaque was identified. The obtuse marginal was coming out onto the epicardial surface of the heart, it was somewhat small, but prior to that bifurcation point, the OM was about a 2 mm vessel. It was opened there and the radial artery was anastomosed there end-to-side with running 7-0 Prolene suture with the anastomosis oriented perpendicular to the axis of the coronary. It was also tested with cold cardioplegia. The ramus was then exposed. Upon dissecting out, the vessel could be appreciated. There was hard plaque in its midportion as it dove intramyocardially. It was opened just distal to that and a corresponding longitudinal arteriotomy was made in the radial artery, positioning it, so that a gentle loop would be achieved, so that a parallel anastomosis to the ramus could be constructed. This [id number] anastomosis was constructed with 7-0 Prolene and tested with cardioplegia. The LAD was then opened and the mammary was anastomosed to it with running 7-0 Prolene. The aortic cross-clamp was replaced with a partial occluding clamp. An aortotomy was made in the ascending aorta with a scalpel and punch, incorporating the root needle site. The vein graft to the PDA was brought along the right side of the heart and anastomosed there end-to-side with a running Prolene suture. A generous longitudinal venotomy was made in the curry of that graft and the radial artery, which had very brisk backflow bleeding. It was trimmed to length and spatulated and anastomosed there end-to-side. The radial artery was allowed to backbleed. The partial occluding clamp was removed and the vein graft was de-aired. The bulldogs were removed from those 2 grafts. The anastomoses were inspected for hemostasis. A posterior pericardial drain was brought out through a separate incision and secured with suture. Right atrial and right ventricular temporary epicardial pacing wires were placed. The patient was then easily from cardiopulmonary bypass. Aortic and venous cannulas were removed and their pursestrings were secured. Protamine was administered. When hemostasis was adequate, an anterior mediastinal drain was placed. The pericardium was easily closed over it with running Vicryl. The cut surfaces of the sternum were treated with vancomycin paste and platelet-rich GPS. The sternum was reapproximated with #7 stainless steel wires. The fascia was closed over the wires with heavy Vicryl. Platelet-poor GPS was then applied to the soft tissues and the subcu was reapproximated with 2-0 Vicryl. The skin was closed with a running Vicryl subcuticular stitch. The wounds were dressed. The patient was awakened and extubated in the operating room and taken to the intensive care unit in stable condition. Job ID: [id number]
[2019-11-19] MEDS: HYDROcodone/Acetaminophen 5/325 mg Tablet PO PRN ×2 (18:26→23:58)
[2019-11-19] MEDS: Famotidine/PF 20 mg/2ml Vial SLOW IVP SCH (20:21)
[2019-11-19] MEDS: Atorvastatin Calcium 20 MG TAB PO SCH (20:21)
[2019-11-20] MEDS: Sodium Chloride 0.9% 1,000 ML IV SCH ×2 (02:56→15:52)
[2019-11-20] MEDS: HYDROcodone/Acetaminophen 5/325 mg Tablet PO PRN ×3 (03:58→23:08)
[2019-11-20 04:08] LABS: #Lymphocytes 1.8 thou/uL (1.20-3.40); #Monocytes 1.8 thou/uL (0.11-0.59); #Neutrophils 15.6 thou/uL (1.40-6.50); %Basophils 0.1 % (0.0-1.0); %Eosinophils 0.1 % (0.0-10.0); %Lymphocytes 9.4 % (21.0-51.0); %Monocytes 9.4 % (0.0-10.0); Hemoglobin 12.2 g/dL (14.0-18.0); Mean Corpuscular HGB CONC 32.6 g/dL (32.0-36.0); Mean Corpuscular Hemoglobin 32.1 pg (27.0-31.0); Mean Corpuscular Volume 98.5 fL (78.0-98.0); Mean Platelet Volume 8.2 fL (7.4-10.4); Platelet Count 191 thou/uL (130-400); Red Blood Cell (RBC) Count 3.79 mill/uL (4.70-6.10); White Blood Cell (WBC) Count 19.2 thou/uL (4.8-10.8)
[2019-11-20 04:29] LABS: Anion Gap 16 mmol/L (10-20); BUN (Urea Nitrogen) 9 mg/dL (8.9-20.6); Calc. Creatinine Clearance 102 mL/min (70-130); Carbon Dioxide 18 mmol/L (22-29); Chloride 109 mmol/L (98-107); Estimated GFR-MDRD Greater than 90; Glucose 109 mg/dL (70-105); Potassium 4.4 mmol/L (3.5-5.1); Sodium 139 mmol/L (136-145)
[2019-11-20] MEDS: Ketorolac Tromethamine 30 MG/ML VIAL IVP SCH ×2 (06:15→23:09)
[2019-11-20] MEDS: Aspirin Chewable 81 MG TAB PO SCH (07:35)
[2019-11-20] MEDS: Famotidine/PF 20 mg/2ml Vial SLOW IVP SCH (07:35)
[2019-11-20] MEDS ORDERED: Dextrose 5% in Water 1,000 ML IV PRN ×2 (07:53→09:47)
[2019-11-20] MEDS ORDERED: Dextrose 50% Abboject 50 ML SYRINGE SLOW IVP PRN (07:53)
--- NOTE | 2019-11-20 08:31 | RAD ---
Chest AP view INDICATION: Status post open-heart surgery COMPARISON: Prior exam dated November 19, 2019 FINDINGS: Lungs:The lungs are clear Cardiac silhouette:Midline sternotomy changes and post-CABG changes are stable. Pulmonary vasculature:Normal Pleural spaces:No pleural effusion or pneumothorax is demonstrated. Upper abdomen:No abnormality seen. Osseous structures: No acute osseous abnormality. Additional findings:Midline mediastinal drain and left-sided subclavian central venous catheter are s table. IMPRESSION: Stable postoperative chest. Stable left subclavian central venous catheter and mediastina l drain. No pneumothorax.
--- NOTE | 2019-11-20 08:42 | PDOC.CPN ---
- Subjective Date: 11/20/19 Time: 08:00 Interval history: The pt seen and examined. No overnight events. No cardiac complaints. Off Levophed this AM - Objective Allergies/Adverse Reactions: Allergies Allergy/AdvReac Type Severity Reaction Status Date / Time No Known Drug Allergies Allergy Verified 11/17/19 23:39 Visit Medications: Current Medications Acetaminophen (Tylenol) 650 mg PO Q6H PRN PRN Reason: Headache/Fever Or Mild Pain Hydrocodone Bitart/Acetaminophen ([place] 5/325) 1 tab PO Q4H PRN PRN Reason: Moderate Pain (4-6) Last Admin: 11/20/19 03:58 Dose: 1 tab Hydrocodone Bitart/Acetaminophen ([place] 5/325) 2 tab PO Q4H PRN PRN Reason: Severe Pain (7-10) Al Hydroxide/Mg Hydroxide (Maalox) 30 ml PO Q4H PRN PRN Reason: Indigestion Albumin Human (Albumin 5%) 12.5 gm IVPB Q6H PRN PRN Reason: To Maintain SBP> 90 mmHG Stop: 11/20/19 12:33 Last Admin: 11/19/19 23:58 Dose: 12.5 gm Albumin Human (Albumin 5%) 25 gm IVPB Q6H PRN PRN Reason: To Maintain SBP > 90 mmHG Stop: 11/20/19 12:33 Albuterol/Ipratropium (Duoneb) 3 ml NEB [id number] PRN PRN Reason: SHORTNESS OF BREATH Aspirin (Aspirin Chewable) 81 mg PO DAILY [facility] Last Admin: 11/20/19 07:35 Dose: 81 mg Atorvastatin Calcium (Lipitor) 20 mg PO HS [facility] Last Admin: 11/19/19 20:21 Dose: 20 mg Bisacodyl (Dulcolax) 10 mg PO Q12H PRN PRN Reason: Constipation Bisacodyl (Dulcolax) 10 mg DE Q12H PRN PRN Reason: Constipation Dextrose/Water (Dextrose 50%) 25 gm SLOW IVP PRN PRN PRN Reason: PER HYPOGLYCEMIC PROTOCOL Famotidine (Pepcid) 20 mg SLOW IVP Q12HR [facility] Last Admin: 11/20/19 07:35 Dose: 20 mg Fentanyl (Sublimaze) 25 mcg SLOW IVP Q2H PRN PRN Reason: Moderate Pain (4-6) Stop: 11/21/19 07:18 Fentanyl (Sublimaze) 50 mcg SLOW IVP Q2H PRN PRN Reason: Severe Pain (7-10) Stop: 11/21/19 07:18 Last Admin: 11/19/19 15:32 Dose: 50 mcg Glucagon (Glucagon) 1 mg SC PRN PRN PRN Reason: PER HYPOGLYCEMIC PROTOCOL Guaifenesin/Dextromethorphan (Robitussin Dm) 15 ml PO Q4H PRN PRN Reason: Cough Hydralazine HCl (Apresoline) 10 mg SLOW IVP Q6H PRN PRN Reason: To Maintain SBP< 140mmHG Norepinephrine Bitartrate (Levophed) 250 mls @ 0 mls/hr IVPB PRN PRN; Protocol PRN Reason: To maintain SBP > 90 mmHG Last Admin: 11/19/19 18:29 Dose: 250 mls Nicardipine HCl 25 mg/ Sodium (Chloride) 260 mls @ 0 mls/hr IVPB INF PRN; Protocol PRN Reason: To Maintain SBP< 140mmHG Nitroglycerin/Dextrose (Nitroglycerin 50 Mg/250 Ml Bot) 250 mls @ 0 mls/hr IVPB PRN PRN; Protocol PRN Reason: To Maintain SBP< 140mmHG Sodium Chloride (Normal Saline 0.9%) 1,000 mls @ 75 mls/hr IV .[id number] AROLDO Last Admin: 11/20/19 02:56 Dose: 1,000 mls Insulin Human Regular 100 (units/ Sodium Chloride) 101 mls @ 0 mls/hr IVPB INF AROLDO; Protocol Dextrose/Water (D5w) 1,000 mls @ 0 mls/hr IV INF PRN PRN Reason: PRN HYPOGLYCEMIC PROTOCOL Insulin Human Regular (Humulin R) 0 units SC Q4H PRN; Protocol PRN Reason: POST OP SLIDING SCALE Morphine Sulfate (Morphine) 2 mg SLOW IVP Q15MIN PRN PRN Reason: Severe Pain (7-10) Ondansetron HCl (Zofran) 4 mg IVP Q6H PRN PRN Reason: Nausea/Vomiting Potassium Chloride (Kcl) 20 meq IVPB PRN PRN PRN Reason: K level </= 4.0 Last Admin: 11/19/19 14:25 Dose: 20 meq Promethazine HCl (Phenergan) 6.25 mg IM Q4H PRN PRN Reason: Nausea/Vomiting Vital Signs & Weight: Vital Signs Temp Pulse Ox 11/20/19 07:21 97 11/20/19 07:00 98.9 F 11/20/19 06:00 99 F 11/20/19 03:21 95 11/20/19 02:00 99.3 F 11/19/19 22:00 99.7 F H Weight 110 lb 3.698 oz - Physical Exam General: alert & oriented x3 HEENT: mucus membranes moist Neck: supple neck Cardiac: regular rate and rhythm, S1/S2 Lungs: clear to auscultation, decreased breath sounds Neuro: cranial nerve 2-12 intact Extremities: no edema - Labs Result Diagrams: 11/20/19 04:00 11/20/19 04:00 Troponin/CKMB CK-MB (CK-2) 1.0 ng/mL (0-6.6) 11/18/19 04:19 Troponin I 0.094 ng/mL (< 0.028) H 11/18/19 04:19 - Telemetry Sinus rhythms and dysrhythmias: sinus rhythm - Assessment/Plan Assessment/Plan: 1. CAD with S/p CABG x4 on 11/18/2019 with TAMEZ-LAD, RSVG-PDA, Lt Radial-Ramus adn OM - stable; will start bblocker and ABDI/ARB with more stable VS 2. DM type 2 - on CABG protocol Insulin drip 3. Tobacco and marijuana abuse - tobacco and illicit drug cessation education given to the pt MAR reviewed * Echo on 11/18/2019 with EF 50-55%, trace MR and mild TR Pt. seen and eval. by me. I agree with the A/P by the MAINTENANCE SERVICE SUPERVISOR. Chest clear. RRR. Chest tubes still in. doing well post CABG. gjm
[2019-11-20] MEDS ORDERED: Aspirin 325 MG TAB PO SCH (09:00)
[2019-11-20] MEDS ORDERED: Dextrose 50% Abboject 50 ML SYRINGE IVP PRN (09:47)
--- NOTE | 2019-11-20 09:57 | PDOC.HOSPP ---
- Subjective Encounter Date: 11/20/19 Encounter Time: 09:55 Subjective: doing great, incisional pain-mild - Objective Vital Signs & Weight: Vital Signs (12 hours) Temp Pulse Ox 11/20/19 07:21 97 11/20/19 07:00 98.9 F 11/20/19 06:00 99 F 11/20/19 03:21 95 11/20/19 02:00 99.3 F 11/19/19 22:00 99.7 F H Weight Weight 110 lb 3.698 oz Most Recent Monitor Data Heart Rate from ECG 92 NIBP 101/65 NIBP BP-Mean 77 Respiration from ECG 20 SpO2 97 I&O: 11/19/19 11/20/19 11/21/19 06:59 06:59 06:59 Intake Total 4687 1254.3 0 Output Total 2850 1200 140 Balance 1837 54.3 -140 Result Diagrams: 11/20/19 04:00 11/20/19 04:00 Additional Labs: Accuchecks 11/20/19 11/20/19 11/20/19 07:34 06:17 05:10 POC Glucose 124 H 126 H 155 H 11/20/19 11/20/19 11/20/19 03:02 02:01 01:04 POC Glucose 112 H 118 H 102 11/19/19 11/19/19 11/19/19 23:59 22:59 21:58 POC Glucose 121 H 135 H 117 H 11/19/19 11/19/19 11/19/19 20:56 20:04 19:12 POC Glucose 111 H 103 101 11/19/19 11/19/19 11/19/19 18:21 17:22 16:06 POC Glucose 119 H 119 H 134 H 11/19/19 11/19/19 11/19/19 14:56 14:09 13:18 POC Glucose 115 H 130 H 152 H 11/19/19 11/19/19 11/19/19 12:45 12:10 11:52 POC Glucose 172 H 220 H 194 H 11/19/19 11/19/19 11/19/19 11:31 11:24 11:05 POC Glucose 229 H 194 H 98 11/19/19 11/19/19 11/19/19 10:48 10:35 10:17 POC Glucose 139 H 136 H 141 H 11/19/19 10:09 POC Glucose 55 L* Hospitalist ROS - Medication Medications: Active Medications Generic Name Dose Route Start Last Admin Trade Name Freq PRN Reason Stop Dose Admin Hydrocodone Bitart/Acetaminophen 1 tab 11/19/19 12:32 11/20/19 03:58 [place] 5/325 PO 1 tab Q4H PRN Administration Moderate Pain (4-6) Albumin Human 12.5 gm 11/19/19 12:32 11/19/19 23:58 Albumin 5% IVPB 11/20/19 12:33 12.5 gm Q6H PRN Administration To Maintain SBP> 90 mmHG Aspirin 81 mg 11/20/19 09:00 11/20/19 07:35 Aspirin Chewable PO 81 mg DAILY AROLDO Administration Atorvastatin Calcium 20 mg 11/19/19 21:00 11/19/19 20:21 Lipitor PO 20 mg HS AROLDO Administration Famotidine 20 mg 11/19/19 21:00 11/20/19 07:35 Pepcid SLOW IVP 20 mg Q12HR AROLDO Administration Fentanyl 50 mcg 11/19/19 12:32 11/19/19 15:32 Sublimaze SLOW IVP 11/21/19 07:18 50 mcg Q2H PRN Administration Severe Pain (7-10) Norepinephrine Bitartrate 250 mls @ 0 mls/hr 11/19/19 12:32 11/19/19 18:29 Levophed IVPB 250 mls PRN PRN Administration To maintain SBP > 90 mmHG Protocol Titrate Sodium Chloride 1,000 mls @ 75 mls/hr 11/19/19 12:32 11/20/19 02:56 Normal Saline 0.9% IV 1,000 mls .[id number] AROLDO Administration Potassium Chloride 20 meq 11/19/19 12:32 11/19/19 14:25 Kcl IVPB 20 meq PRN PRN Administration K level </= 4.0 - Exam General Appearance: awake alert Neck: no JVD Heart: RRR, no murmur Respiratory: CTAB Gastrointestinal: soft, normal bowel sounds Extremities: no edema Hosp A/P (1) Non-ST elevation [place] (NSTEMI) Code(s): I21.4 - NON-ST ELEVATION (NSTEMI) MYOCARDIAL INFARCTION Status: Acute (2) CAD (coronary artery disease) Code(s): I25.10 - ATHSCL HEART DISEASE OF [place] CORONARY ARTERY W/O ANG PCTRS Status: Acute Qualifiers: Coronary Disease-Associated Artery/Lesion type: [place] artery [place] vs. transplanted heart: [place] heart Associated angina: with unstable angina Qualified Code(s): I25.110 - Atherosclerotic heart disease of [place] coronary artery with unstable angina pectoris (3) DM (diabetes mellitus), type 2, uncontrolled Code(s): E11.65 - TYPE 2 DIABETES MELLITUS WITH HYPERGLYCEMIA Status: Chronic Qualifiers: Glycemic state: with hyperglycemia Qualified Code(s): E11.65 - Type 2 diabetes mellitus with hyperglycemia (4) Tobacco abuse Code(s): Z72.0 - TOBACCO USE Status: Chronic - Plan post CABG, doing well bilat chest tubes cont [facility] protocol transferring to tele
[2019-11-20] MEDS: Insulin Regular 300 UNITS/3 ML VIAL SC PRN ×2 (15:48→20:53)
[2019-11-20] MEDS ORDERED: Ketorolac Tromethamine 30 MG/ML VIAL IVP SCH (19:49)
[2019-11-20] MEDS ORDERED: Nitroglycerin 0.4 MG TAB (25 Tab Bottle) SL PRN (19:49)
[2019-11-20] MEDS ORDERED: Bisacodyl 5 MG TAB PO PRN (19:49)
[2019-11-20] MEDS ORDERED: diphenhydrAMINE 25 MG CAP PO PRN (19:49)
[2019-11-20] MEDS ORDERED: Mag-Al 1200 mg/1200 mg/30 ML UDCUP PO PRN (19:49)
[2019-11-20] MEDS ORDERED: Bisacodyl 10 MG SUPP PR PRN (19:49)
[2019-11-20] MEDS ORDERED: Mineral Oil ENEMA PR PRN (19:49)
[2019-11-20] MEDS ORDERED: Guaifenesin DM 100-10/5 ML UDCUP PO PRN (19:49)
[2019-11-20] MEDS ORDERED: Artificial Tears 18 DROP/0.9 ML EA EYE PRN (19:49)
[2019-11-20] MEDS ORDERED: Zolpidem Tartrate 5 MG TAB PO PRN (19:49)
[2019-11-20] MEDS ORDERED: Metoprolol Tartrate 25 MG TAB PO SCH (20:00)
[2019-11-20] MEDS: Atorvastatin Calcium 20 MG TAB PO SCH (20:46)
[2019-11-21 04:39] LABS: #Basophils 0.1 thou/uL (0.0-0.2); #Eosinphils 0.1 thou/uL (0.0-0.7); #Lymphocytes 3.4 thou/uL (1.20-3.40); #Monocytes 1.3 thou/uL (0.11-0.59); #Neutrophils 6.8 thou/uL (1.40-6.50); %Basophils 0.4 % (0.0-1.0); %Eosinophils 0.5 % (0.0-10.0); %Lymphocytes 29.2 % (21.0-51.0); %Monocytes 11.3 % (0.0-10.0); %Neutrophils 58.6 % (42.0-75.0); Hemoglobin 11.8 g/dL (14.0-18.0); Mean Corpuscular HGB CONC 33.1 g/dL (32.0-36.0); Mean Corpuscular Hemoglobin 32.3 pg (27.0-31.0); Mean Corpuscular Volume 97.7 fL (78.0-98.0); Mean Platelet Volume 7.4 fL (7.4-10.4); Platelet Count 177 thou/uL (130-400); RBC Distribution Width 11.8 % (11.5-14.5); Red Blood Cell (RBC) Count 3.64 mill/uL (4.70-6.10); White Blood Cell (WBC) Count 11.7 thou/uL (4.8-10.8)
[2019-11-21 04:59] LABS: Anion Gap 11 mmol/L (10-20); BUN (Urea Nitrogen) 9 mg/dL (8.9-20.6); Calc. Creatinine Clearance 116 mL/min (70-130); Calcium 7.8 mg/dL (7.8-10.44); Carbon Dioxide 23 mmol/L (22-29); Chloride 105 mmol/L (98-107); Estimated GFR-MDRD Greater than 90; Glucose 155 mg/dL (70-105); Potassium 3.7 mmol/L (3.5-5.1); Sodium 135 mmol/L (136-145)
[2019-11-21] MEDS: Ketorolac Tromethamine 30 MG/ML VIAL IVP SCH ×3 (06:29→17:14)
--- NOTE | 2019-11-21 06:50 | PDOC.GSPN ---
Surgery Progress Note: Subj - Subjective Patient reports: no new complaints, feels better, positive flatus, pain well controlled Narrative: Patient reports mild pain at incision site, doing well. Surgery Progress Note: Obj - Vital signs Vital signs: Vital Signs - Most Recent Temp Pulse Resp BP Pulse Ox 97.8 F 82 16 131/74 97 11/21/19 04:00 11/19/19 05:04 11/19/19 05:04 11/19/19 05:04 11/20/19 19:20 - Physical Exam General: no distress Cardiovascular: regular rate and rhythm, no murmur Respiratory: clear to auscultation, breath sounds present Surgery Progress Note: Results - Labs Result Diagrams: 11/21/19 04:20 11/21/19 04:20 Lab results: Laboratory Results - last 24 hr 11/20/19 11/21/19 11/21/19 20:56 04:20 04:20 WBC 11.7 H RBC 3.64 L Hgb 11.8 L Hct 35.5 L MCV 97.7 MCH 32.3 H MCHC 33.1 RDW 11.8 Plt Count 177 MPV 7.4 Neutrophils % 58.6 Lymphocytes % 29.2 Monocytes % 11.3 H Eosinophils % 0.5 Basophils % 0.4 Neutrophils # 6.8 H Lymphocytes # 3.4 Monocytes # 1.3 H Eosinophils # 0.1 Basophils # 0.1 Sodium 135 L Potassium 3.7 Chloride 105 Carbon Dioxide 23 Anion Gap 11 BUN 9 Creatinine 0.62 L Estimated GFR (MDRD) Greater than 90 Glucose 155 H POC Glucose 261 H Calcium 7.8 11/21/19 06:32 WBC RBC Hgb Hct MCV MCH MCHC RDW Plt Count MPV Neutrophils % Lymphocytes % Monocytes % Eosinophils % Basophils % Neutrophils # Lymphocytes # Monocytes # Eosinophils # Basophils # Sodium Potassium Chloride Carbon Dioxide Anion Gap BUN Creatinine Estimated GFR (MDRD) Glucose POC Glucose 144 H Calcium Surgery Progress Note: A/P - Problem (1) CAD (coronary artery disease) Current Visit: Yes Code(s): I25.10 - ATHSCL HEART DISEASE OF [place] CORONARY ARTERY W/O ANG PCTRS Status: Acute Qualifiers: Coronary Disease-Associated Artery/Lesion type: [place] artery [place] vs. transplanted heart: [place] heart Associated angina: with unstable angina Qualified Code(s): I25.110 - Atherosclerotic heart disease of [place] coronary artery with unstable angina pectoris Assessment and Plan: Pain appears to be improving and stable. Continue current medications and monitoring.
--- NOTE | 2019-11-21 07:53 | RAD ---
Portable frontal chest radiograph: 11/21/2019 COMPARISON: 11/20/2019 HISTORY: Evaluate chest following CABG FINDINGS: Midline sternotomy wires and mediastinal clips are stable. Stable left-sided vascular hannah ter. Stable drainage catheters overlie the midline lower mediastinum. No focal consolidation or alveolar edema. Supine imaging provided, limiting assessment for pneumothorax and pleural fluid. IMPRESSION: Postoperative changes as above.
[2019-11-21] MEDS: Aspirin Chewable 81 MG TAB PO SCH (07:55)
[2019-11-21] MEDS: Metoprolol Tartrate 25 MG TAB PO SCH ×2 (07:55→20:46)
--- NOTE | 2019-11-21 08:44 | PDOC.CPN ---
- Subjective Date: 11/21/19 Time: 08:30 Interval history: The pt seen and examined. No overnight events. No cardiac complaints. The pt is up to chair without any difficulties. - Objective Allergies/Adverse Reactions: Allergies Allergy/AdvReac Type Severity Reaction Status Date / Time No Known Drug Allergies Allergy Verified 11/17/19 23:39 Visit Medications: Current Medications Hydrocodone Bitart/Acetaminophen ([place] 5/325) 1 tab PO Q4H PRN PRN Reason: Moderate Pain (4-6) Last Admin: 11/20/19 23:08 Dose: 1 tab Hydrocodone Bitart/Acetaminophen ([place] 5/325) 2 tab PO Q4H PRN PRN Reason: Severe Pain (7-10) Al Hydroxide/Mg Hydroxide (Maalox) 30 ml PO Q4H PRN PRN Reason: Indigestion Albuterol/Ipratropium (Duoneb) 3 ml NEB [id number] PRN PRN Reason: SHORTNESS OF BREATH Artificial Tears (Tears Naturale) 0 drop EA EYE PRN PRN PRN Reason: Dry Eyes Aspirin (Aspirin Chewable) 81 mg PO DAILY [facility] Last Admin: 11/21/19 07:55 Dose: 81 mg Atorvastatin Calcium (Lipitor) 20 mg PO HS [facility] Last Admin: 11/20/19 20:46 Dose: 20 mg Bisacodyl (Dulcolax) 10 mg PO Q12H PRN PRN Reason: Constipation Bisacodyl (Dulcolax) 10 mg DC Q12H PRN PRN Reason: Constipation Diphenhydramine HCl (Benadryl) 25 mg PO Q6H PRN PRN Reason: Itching & Insomnia or [place] Glucagon (Glucagon) 1 mg IM PRN PRN PRN Reason: HYPOGLYCEMIA PROTOCOL Guaifenesin/Dextromethorphan (Robitussin Dm) 15 ml PO Q4H PRN PRN Reason: Cough Insulin Human Regular (Humulin R) 0 units SC .MILD SLIDING PRN; Protocol PRN Reason: MILD SLIDING SCALE Last Admin: 11/20/19 20:53 Dose: 4 units Ketorolac Tromethamine (Toradol) 30 mg IVP Q6HR [facility] Stop: 11/22/19 23:59 Last Admin: 11/21/19 06:29 Dose: 30 mg Metoprolol Tartrate (Lopressor) 25 mg PO BID [facility] Last Admin: 11/21/19 07:55 Dose: 25 mg Mineral Oil (Fleet Mineral Oil) 133 ml DC DAILYPRN PRN PRN Reason: Constipation Nitroglycerin (Nitrostat) 0.4 mg SL Q5MIN PRN PRN Reason: Chest Pain Ondansetron HCl (Zofran) 4 mg IVP Q6H PRN PRN Reason: Nausea/Vomiting Sodium Chloride (Flush - Normal Saline) 10 ml IVF Q12HR [facility] Last Admin: 11/21/19 07:59 Dose: 10 ml Zolpidem Tartrate (Ambien) 5 mg PO HSPRN PRN PRN Reason: Insomnia Vital Signs & Weight: Vital Signs Temp Pulse Ox 11/21/19 07:28 96 11/21/19 07:00 98.6 F 11/21/19 04:00 97.8 F 11/21/19 00:00 98.7 F 11/20/19 21:00 98.8 F Weight 111 lb 12.39 oz - Physical Exam General: alert & oriented x3 HEENT: mucus membranes moist Neck: supple neck Cardiac: regular rate and rhythm, S1/S2 Lungs: clear to auscultation Neuro: cranial nerve 2-12 intact Extremities: no edema - Labs Result Diagrams: 11/21/19 04:20 11/21/19 04:20 Troponin/CKMB CK-MB (CK-2) 1.0 ng/mL (0-6.6) 11/18/19 04:19 Troponin I 0.094 ng/mL (< 0.028) H 11/18/19 04:19 - Telemetry Sinus rhythms and dysrhythmias: sinus rhythm - Assessment/Plan Assessment/Plan: 1. CAD with S/p CABG x4 on 11/18/2019 with TAMEZ-LAD, RSVG-PDA, Lt Radial-Ramus adn OM - stable; Metoprolol was started from yesterday and increased to 25mg BID from this AM; on ASA and Statin 2. DM type 2 - 3. Tobacco and marijuana abuse - tobacco and illicit drug cessation education given to the pt MAR reviewed * Echo on 11/18/2019 with EF 50-55%, trace MR and mild TR Pt. seen and eval. by me. I agree with the A/P by rthe DIRECT RESPONSE CONSULTANT. He has no cardiac complaints. chest clear. RRR. No edema. prob. home in a couple days. Will need assistance with meds.
[2019-11-21] MEDS ORDERED: Metoprolol Tartrate 25 MG TAB PO SCH (09:00)
[2019-11-21] MEDS: Insulin Regular 300 UNITS/3 ML VIAL SC PRN ×2 (11:28→17:14)
--- NOTE | 2019-11-21 20:17 | PDOC.HOSPP ---
- Subjective Encounter Date: 11/21/19 Encounter Time: 12:30 Subjective: Patient seen and examined for NSTEMI. No CP. No new complaints. No overnight events - Objective Vital Signs & Weight: Vital Signs (12 hours) Temp Pulse Pulse Pulse Resp BP BP 11/21/19 18:31 98.1 F 90 17 11/21/19 15:00 98.5 F 11/21/19 13:43 77 87 111/71 116/77 11/21/19 13:00 98.3 F 11/21/19 09:39 86 87 105/73 108/76 BP Pulse Ox Pulse Ox Pulse Ox 11/21/19 18:31 131/77 97 11/21/19 15:00 11/21/19 13:43 99 98 11/21/19 13:00 11/21/19 09:39 97 97 Weight Weight 111 lb 12.39 oz Most Recent Monitor Data Heart Rate from ECG 83 NIBP 126/74 NIBP BP-Mean 91 Respiration from ECG 15 SpO2 97 I&O: 11/20/19 11/21/19 11/22/19 06:59 06:59 06:59 Intake Total 1254.3 3490 1080 Output Total 1200 1760 1720 Balance 54.3 1730 -640 Result Diagrams: 11/21/19 04:20 11/21/19 04:20 Additional Labs: Accuchecks 11/21/19 11/21/19 11/21/19 17:11 11:28 06:32 POC Glucose 166 H 190 H 144 H 11/20/19 20:56 POC Glucose 261 H EKG Reviewed by me: Yes (Tele SR) Hospitalist ROS - Review of Systems Respiratory: denies: cough, dry, shortness of breath, hemoptysis, SOB with excertion, pleuritic pain, sputum, wheezing, other Cardiovascular: denies: chest pain, palpitations, orthopnea, paroxysmal noc. dyspnea, edema, light headedness, other - Medication Medications: Active Medications Generic Name Dose Route Start Last Admin Trade Name Freq PRN Reason Stop Dose Admin Hydrocodone Bitart/Acetaminophen 1 tab 11/19/19 12:32 11/20/19 23:08 [place] 5/325 PO 1 tab Q4H PRN Administration Moderate Pain (4-6) Aspirin 81 mg 11/20/19 09:00 11/21/19 07:55 Aspirin Chewable PO 81 mg DAILY AROLDO Administration Atorvastatin Calcium 20 mg 11/19/19 21:00 11/20/19 20:46 Lipitor PO 20 mg HS AROLDO Administration Insulin Human Regular 0 units 11/20/19 09:47 11/21/19 17:14 Humulin R SC 2 units .MILD SLIDING PRN Administration MILD SLIDING SCALE Protocol Ketorolac Tromethamine 30 mg 11/20/19 23:59 11/21/19 17:14 Toradol IVP 11/22/19 23:59 30 mg Q6HR AROLDO Administration Metoprolol Tartrate 25 mg 11/21/19 09:00 11/21/19 07:55 Lopressor PO 25 mg BID AROLDO Administration Sodium Chloride 10 ml 11/20/19 21:00 11/21/19 07:59 Flush - Normal Saline IVF 10 ml Q12HR AROLDO Administration - Exam General Appearance: NAD Heart: RRR, no gallops Respiratory: no wheezes, no rales, no ronchi Gastrointestinal: non-tender, non-distended, normal bowel sounds Extremities: no clubbing Hosp A/P - Plan DVT proph w/SCDs CP/NSTEMI CAD s/p CABG DM2 Tobacco dep Cannabis abuse F/H of premature CAD Hyponatremia PLAN: Cont supportive care Cont ASA/Statin Cont Metoprolol Cont other meds as above
[2019-11-21] MEDS: Atorvastatin Calcium 20 MG TAB PO SCH (20:44)
[2019-11-22] MEDS: Ketorolac Tromethamine 30 MG/ML VIAL IVP SCH ×5 (00:27→23:41)
[2019-11-22 04:18] LABS: #Basophils 0.1 thou/uL (0.0-0.2); #Eosinphils 0.2 thou/uL (0.0-0.7); #Lymphocytes 2.8 thou/uL (1.20-3.40); #Monocytes 0.9 thou/uL (0.11-0.59); %Basophils 0.6 % (0.0-1.0); %Eosinophils 1.7 % (0.0-10.0); %Lymphocytes 28.3 % (21.0-51.0); %Monocytes 9.3 % (0.0-10.0); %Neutrophils 60.1 % (42.0-75.0); Mean Corpuscular HGB CONC 33.6 g/dL (32.0-36.0); Mean Corpuscular Hemoglobin 32.5 pg (27.0-31.0); Mean Corpuscular Volume 96.7 fL (78.0-98.0); Mean Platelet Volume 7.6 fL (7.4-10.4); Platelet Count 190 thou/uL (130-400); RBC Distribution Width 11.7 % (11.5-14.5); Red Blood Cell (RBC) Count 3.37 mill/uL (4.70-6.10)
[2019-11-22 04:30] LABS: Anion Gap 12 mmol/L (10-20); BUN (Urea Nitrogen) 11 mg/dL (8.9-20.6); Calc. Creatinine Clearance 109 mL/min (70-130); Carbon Dioxide 26 mmol/L (22-29); Chloride 102 mmol/L (98-107); Estimated GFR-MDRD Greater than 90; Glucose 155 mg/dL (70-105); Sodium 136 mmol/L (136-145)
[2019-11-22 04:54] VITALS: BMI 19.6
[2019-11-22] MEDS: Aspirin Chewable 81 MG TAB PO SCH (09:26)
[2019-11-22] MEDS: Metoprolol Tartrate 25 MG TAB PO SCH ×2 (09:26→21:04)
--- NOTE | 2019-11-22 17:13 | PDOC.HOSPP ---
- Subjective Encounter Date: 11/22/19 Encounter Time: 08:20 Subjective: Pt seen for followup re; NSTEMI. No complaints today. - Objective Vital Signs & Weight: Vital Signs (12 hours) Temp Pulse Pulse Pulse Resp BP BP 11/22/19 16:48 98.4 F 89 18 11/22/19 11:58 98.3 F 78 20 11/22/19 08:20 86 82 122/77 124/74 11/22/19 07:36 98.6 F 77 17 BP Pulse Ox 11/22/19 16:48 126/81 99 11/22/19 11:58 110/70 95 11/22/19 08:20 11/22/19 07:36 120/83 96 Weight Weight 110 lb 14.4 oz Most Recent Monitor Data Heart Rate from ECG 83 NIBP 126/74 NIBP BP-Mean 91 Respiration from ECG 15 SpO2 97 I&O: 11/21/19 11/22/19 11/23/19 06:59 06:59 06:59 Intake Total 3490 1080 Output Total 1760 1720 Balance 1730 -640 Result Diagrams: 11/22/19 03:44 11/22/19 03:44 Additional Labs: Accuchecks 11/22/19 11/22/19 11/21/19 10:56 05:56 20:34 POC Glucose 218 H 160 H 186 H 11/21/19 17:11 POC Glucose 166 H labs and MARs reviewed by ak Hospitalist ROS - Review of Systems Cardiovascular: denies: chest pain, palpitations, orthopnea, paroxysmal noc. dyspnea, edema, light headedness Gastrointestinal: denies: nausea, vomiting, abdominal pain, diarrhea, constipation, melena, hematochezia - Medication Medications: Active Medications Generic Name Dose Route Start Last Admin Trade Name Freq PRN Reason Stop Dose Admin Hydrocodone Bitart/Acetaminophen 1 tab 11/19/19 12:32 11/20/19 23:08 [place] 5/325 PO 1 tab Q4H PRN Administration Moderate Pain (4-6) Aspirin 81 mg 11/20/19 09:00 11/22/19 09:26 Aspirin Chewable PO 81 mg DAILY AROLDO Administration Atorvastatin Calcium 20 mg 11/19/19 21:00 11/21/19 20:44 Lipitor PO 20 mg HS AROLDO Administration Insulin Human Regular 0 units 11/20/19 09:47 11/21/19 17:14 Humulin R SC 2 units .MILD SLIDING PRN Administration MILD SLIDING SCALE Protocol Ketorolac Tromethamine 30 mg 11/20/19 23:59 11/22/19 11:50 Toradol IVP 11/22/19 23:59 30 mg Q6HR AROLDO Administration Metoprolol Tartrate 25 mg 11/21/19 09:00 11/22/19 09:26 Lopressor PO 25 mg BID AROLDO Administration Sodium Chloride 10 ml 11/20/19 21:00 11/22/19 09:27 Flush - Normal Saline IVF 10 ml Q12HR AROLDO Administration - Exam General Appearance: NAD Eye: anicteric sclera ENT: moist mucosa Neck: supple Heart: RRR Respiratory: CTAB Gastrointestinal: soft, non-tender Extremities: no cyanosis Skin: no rashes Musculoskeletal: no muscle wasting Psychiatric: normal affect Hosp A/P - Plan - Assessment NSTEMI DM2 CAD Tobacco dep Cannabis abuse F/H of premature CAD - Plan s/p CABG Cont aspirin and statin Continue Metoprolol Cardiac rehab Hyponatremia resolved
[2019-11-22] MEDS: Atorvastatin Calcium 20 MG TAB PO SCH (21:04)
[2019-11-22] MEDS: Insulin Regular 300 UNITS/3 ML VIAL SC PRN (21:04)
[2019-11-23 05:08] LABS: #Basophils 0.1 thou/uL (0.0-0.2); #Eosinphils 0.3 thou/uL (0.0-0.7); #Lymphocytes 3.5 thou/uL (1.20-3.40); #Monocytes 0.8 thou/uL (0.11-0.59); #Neutrophils 3.7 thou/uL (1.40-6.50); %Basophils 0.7 % (0.0-1.0); %Eosinophils 3.5 % (0.0-10.0); %Lymphocytes 41.6 % (21.0-51.0); %Monocytes 9.5 % (0.0-10.0); %Neutrophils 44.8 % (42.0-75.0); Hemoglobin 10.7 g/dL (14.0-18.0); Mean Corpuscular HGB CONC 33.2 g/dL (32.0-36.0); Mean Corpuscular Hemoglobin 32.1 pg (27.0-31.0); Mean Corpuscular Volume 96.7 fL (78.0-98.0); Mean Platelet Volume 7.7 fL (7.4-10.4); Platelet Count 223 thou/uL (130-400); RBC Distribution Width 11.7 % (11.5-14.5); Red Blood Cell (RBC) Count 3.33 mill/uL (4.70-6.10); White Blood Cell (WBC) Count 8.3 thou/uL (4.8-10.8)
[2019-11-23 05:29] LABS: Anion Gap 12 mmol/L (10-20); BUN (Urea Nitrogen) 14 mg/dL (8.9-20.6); Calc. Creatinine Clearance 109 mL/min (70-130); Calcium 8.1 mg/dL (7.8-10.44); Carbon Dioxide 26 mmol/L (22-29); Chloride 106 mmol/L (98-107); Estimated GFR-MDRD Greater than 90; Glucose 131 mg/dL (70-105); Potassium 3.5 mmol/L (3.5-5.1); Sodium 140 mmol/L (136-145)
[2019-11-23 07:36] VITALS: TEMP 98.5
[2019-11-23] MEDS: Aspirin Chewable 81 MG TAB PO SCH (09:07)
[2019-11-23] MEDS: Metoprolol Tartrate 25 MG TAB PO SCH (09:07)
[2019-11-23] MEDS: Insulin Regular 300 UNITS/3 ML VIAL SC PRN (11:43)
[2019-11-23 11:44] VITALS: BP 109/70
--- NOTE | 2019-11-23 12:12 | DIS ---
DATE OF ADMISSION: 11/17/2019 DATE OF DISCHARGE: 11/23/2019 PRIMARY CARE PROVIDER: [facility]. DISCHARGE DIAGNOSES: 1. Non-ST elevation myocardial infarction. 2. Coronary artery bypass graft during this hospitalization. 3. Poorly controlled diabetes mellitus. 4. Hyponatremia. 5. Tobacco abuse. 6. Marijuana use. CONDITION: Condition of the patient on the day of discharge: Stable. I assessed Mr. Ding on the day of discharge. He denies any chest pain or shortness of breath. Vital signs are stable. S1 and S2 are heard, regular. Lungs are clear to auscultation bilaterally. CONSULTATIONS DURING THIS HOSPITALIZATION: 1. Cardiology, Dr. Dawn. 2. Cardiovascular Surgery, Dr. Smith. POST-ACUTE CARE FOLLOWUP: With primary care provider on November 26, 2019 at 1:45 p.m., with Dr. Dawn in 3 to 4 weeks, and with Dr. Smith in 2 weeks and with cardiac rehab. DIET: Diabetic and heart healthy. ACTIVITY: As tolerated, with sternal precautions. DISCHARGE MEDICATIONS: 1. Aspirin 81 mg daily. 2. Lipitor 20 mg at bedtime. 3. Metformin extended release 1000 mg daily. 4. Lopressor 25 mg 2 times a day. HOSPITAL COURSE: Mr. Ding is a pleasant 34-year-old gentleman, who was admitted to [facility] on November 17, 2019, for chest pain and elevated troponin. Please refer to Ms. Dubois's history and physical note dated November 18, 2019, for further details. He was seen by Cardiology Service. He underwent cardiac catheterization and was found to have severe three-vessel disease. He was recommended urgent coronary artery bypass graft. He was seen by Cardiovascular Surgery. On November 19, he underwent coronary artery bypass graft x4. He continued to improve during the postoperative period and is being discharged home in a stable condition. His hemoglobin A1c was 10 during this hospitalization. He has been started on extended-release metformin and was advised that he will need further adjustments to his diabetes medications done through his primary care provider. During this hospitalization, he had triglycerides of 134, cholesterol 172, LDL cholesterol of 98, and HDL cholesterol of 47. Many thanks for allowing me to participate in your patient's care. Please feel free to contact me with any questions or concerns. DISCHARGE DESTINATION: Home. TIME SPENT: Total amount of time spent in coordinating this discharge: 33 minutes. Job ID: [id number]
--- NOTE | 2019-11-24 00:02 | EKG ---
Test Reason : POST CABG Blood Pressure : / mmHG Vent. Rate : 079 BPM Atrial Rate : 079 BPM P-R Int : 158 ms QRS Dur : 084 ms QT Int : 410 ms P-R-T Axes : 079 090 096 degrees QTc Int : 470 ms Normal sinus rhythm Rightward axis Prolonged QT Abnormal ECG When compared with ECG of 17-NOV-2019 18:23, (Unconfirmed) QRS axis Shifted right T wave inversion no longer evident in Inferior leads T wave inversion more evident in Anterior leads QT has lengthened Confirmed by Dot NOE ([id number]) on 11/24/2019 12:01:44 AM Referred By: SNEHAL Confirmed By:Dot NOE
== END 2019-11-23 15:30 | disposition home or self-care (01) | DRG 234 ==
LOC: ERS 17:49 → OBSVTOIN 23:20 → 2SW 23:20 → CCU 11-19 10:50 → 2NO 11-21 18:28
PROVIDERS: ADMIT Emergency Medicine; ATTEND Emergency Medicine
PROC: 4A023N7 Measurement of Cardiac Sampling and Pressure, Left Heart, Percutaneous Approach (ICD-10-PCS; principal; 2019-11-18)
PROC: B2111ZZ Fluoroscopy of Multiple Coronary Arteries using Low Osmolar Contrast (ICD-10-PCS; 2019-11-18)
PROC: B2151ZZ Fluoroscopy of Left Heart using Low Osmolar Contrast (ICD-10-PCS; 2019-11-18)
PROC: 02100Z9 Bypass Coronary Artery, One Artery from Left Internal Mammary, Open Approach (ICD-10-PCS; 2019-11-19)
PROC: 021209W Bypass Coronary Artery, Three Arteries from Aorta with Autologous Venous Tissue, Open Approach (ICD-10-PCS; 2019-11-19)
PROC: 06BQ3ZZ Excision of Left Saphenous Vein, Percutaneous Approach (ICD-10-PCS; 2019-11-19)
PROC: 5A1221Z Performance of Cardiac Output, Continuous (ICD-10-PCS; 2019-11-19)
DX: I21.4 Non-ST elevation (NSTEMI) myocardial infarction (principal); E87.1 Hypo-osmolality and hyponatremia; I25.110 Atherosclerotic heart disease of native coronary artery with unstable angina pectoris; F17.200 Nicotine dependence, unspecified, uncomplicated; E11.65 Type 2 diabetes mellitus with hyperglycemia; F12.10 Cannabis abuse, uncomplicated; Z71.6 Tobacco abuse counseling; Z82.49 Family history of ischemic heart disease and other diseases of the circulatory system
CPT/HCPCS: 36415; 36416; 36430; 71045; 80048; 80053; 80061; 80306; 81003; 82550; 82553; 83036; 83735; 83880; 84132; 84443; 84484; 85025; 85610; 85730; 86850; 86900; 86901; 90471; 90686; 90732; 93005; 93010; 93306; 93458; 93798; 94760; 96360; 96361; 96372; C1769; G0008; G0009; J0690; J1100; J1642; J1644; J1650; J1815; J1885; J2001; J2250; J2405; J2440; J2720; J3010; J3370; J3475; J3480; P9045; Q9967; S0017; S0028